=== PATIENT | female | born 1950 | race Caucasian/White ===

== ENCOUNTER → 2016-05-20 | Outpatient (CLI) | payer MEDICARE, BC ==
--- NOTE | 2016-05-21 09:14 | MRI ---
EXAM DESCRIPTION: Lumbar Spine w/o Contrast CLINICAL HISTORY: UNSPECIFIED FRACTURE OF UNSPECIFIED LUMBAR VERTEBRA COMPARISON: None Available. TECHNIQUE: MRI of the lumbar spine is performed according to our usual protocol with axial and sagittal multi sequence imaging. FINDINGS: There is good alignment of the lumbar spine. Compression deformity of L2 is present and there has been prior percutaneous vertebral augmentation. Vertebral body is filled with methacrylate cement. The distribution of the cement is excellent and there is no postprocedural complication observed. There is no residual edema. There is no new fracture at any level. L1-2: the disc is well hydrated. There is no loss of height. There is no bulging. The facets are unremarkable with no significant hypertrophy. There is no stenosis or impingement. L2-3: the disc is well hydrated. There is no loss of height. There is no bulging. The facets are unremarkable with no significant hypertrophy. There is no stenosis or impingement. L3-4: the disc is well hydrated. There is no loss of height. There is no bulging. The facets are unremarkable with no significant hypertrophy. There is no stenosis or impingement. L4-5: Minor narrowing and desiccation of the disc and broad annular bulging is present. There is a protrusion of the disc on the left measuring about 2 to 3 mm with an associated focal annular tear. There is no impingement on the exiting nerve root. There is early bilateral facet and ligament hypertrophy. However, there is no resulting canal or foraminal stenosis. L5-S1: The disc is unremarkable. There is early bilateral facet arthropathy with hypertrophy. There is no stenosis or impingement observed. IMPRESSION: 1. Disc disease L4-5 with left side disc protrusion and annular tear 2. Early facet arthropathy L4-5 and L5-S1 3. Previously treated L2 vertebral fracture Electronically signed by: Justino Alvarenga MD 05/21/2016 9:13 AM CDT
== END | disposition home or self-care (01) ==
LOC: MRI 10:54
PROVIDERS: ATTEND Family Medicine
DX: S32.009A Unspecified fracture of unspecified lumbar vertebra, initial encounter for closed fracture (principal)

== ENCOUNTER → 2016-06-29 | Outpatient (CLI) | payer MEDICARE, BC | END | disposition home or self-care (01) | LOC: YCFC.O 10:24 | PROVIDERS: ATTEND Anesthesiology Pain Medicine | DX: Z79.891 Long term (current) use of opiate analgesic (principal) ==

== ENCOUNTER 2016-07-27 05:38 | Day surgery (SDC) | payer MEDICARE, BC ==
[2016-07-27] MEDS ORDERED: SODIUM BICARBONATE VIAL 50 MEQ/50 ML VIAL ONE (10:12)
[2016-07-27] MEDS ORDERED: methylPREDNISolone ACETATE 80 MG/ML VIAL ONE (10:12)
[2016-07-27] MEDS ORDERED: SODIUM CHLORIDE 0.9% 10 ML VIAL ONE (10:12)
[2016-07-27] MEDS ORDERED: LIDOCAINE 1% MPF 5 ML VIAL ONE (10:12)
[2016-07-27 13:02] VITALS: O2SAT 95
[2016-07-27 13:36] VITALS: BP 148/71; TEMP 97.8
== END 2016-07-27 13:28 | disposition home or self-care (01) ==
LOC: AMB 05:38
PROVIDERS: ATTEND Anesthesiology Pain Medicine
DX: M51.16 Intervertebral disc disorders with radiculopathy, lumbar region (principal); F41.8 Other specified anxiety disorders; J44.9 Chronic obstructive pulmonary disease, unspecified; E78.00 Pure hypercholesterolemia, unspecified; M81.0 Age-related osteoporosis without current pathological fracture; F17.210 Nicotine dependence, cigarettes, uncomplicated; Z79.899 Other long term (current) drug therapy
CPT/HCPCS: 62323; 76000; J1030

== ENCOUNTER → 2016-09-22 | Outpatient (CLI) | payer MEDICARE, BC ==
--- NOTE | 2016-09-23 10:28 | US ---
EXAM DESCRIPTION: Thyroid CLINICAL HISTORY: 66 years, Female, NODULE COMPARISON: CT scan chest from August 13, 2010 and July 25, 2015 are reviewed. The MRI study of the cervical spine from October 08, 2014 also reviewed FINDINGS: Right lobe of thyroid 3.7 x 1.6 x 1.8 cm. Left lobe 4.1 x 2.2 x 2.0 cm. Isthmus 4 mm. Slightly heterogeneous thyroid echotexture. Lower right thyroid, there is a hypoechoic slightly irregular nodule 1.2 x 1.2 x 1.3 cm. Upper right lobe hypoechoic to isoechoic well-circumscribed nodule 1.4 x 1.0 x 0.6 cm. Left lobe lower portion well-circumscribed slightly hypoechoic nodule 2.2 x 1.7 x 1.2 cm. Similar size nodule present on the September 2014 MRI cervical spine. Mid left lobe nodule 1.1 x 1.1 x 0 point centimeters, isoechoic. IMPRESSION: Bilateral thyroid nodules identified. The nodule in the lower right lobe is irregular in appearance measuring up to about 1.3 cm. Due to irregular lobular appearing borders, biopsy should be considered. The other nodules fairly smooth in appearance. The largest of these nodules was probably present on the MRI study in 2014 Electronically signed by: Brodie Monteiro MD 09/23/2016 10:26 AM CDT
== END | disposition home or self-care (01) ==
LOC: US 09:59
PROVIDERS: ATTEND Family Medicine
DX: E04.1 Nontoxic single thyroid nodule (principal)

== ENCOUNTER → 2017-01-06 | Outpatient (CLI) | payer MEDICARE, BC | END | disposition home or self-care (01) | LOC: GMAJ 15:01 | PROVIDERS: ATTEND Family Medicine | DX: E03.9 Hypothyroidism, unspecified (principal) ==

== ENCOUNTER → 2017-04-08 | Outpatient (CLI) | payer MEDICARE, BC | LOC: GMAJ 11:31 | PROVIDERS: ATTEND Family Medicine | DX: E89.0 Postprocedural hypothyroidism (principal) ==

== ENCOUNTER → 2017-04-21 | Outpatient (CLI) | payer MEDICARE, BC ==
--- NOTE | 2017-04-21 11:19 | MRI ---
EXAM: Cervical Spine MRI without intravenous contrast HISTORY: OTHER CERVICAL DISC DISPLACEMENT AT C5-C6 LEVEL, neck pain for several months with radiation toward the left shoulder with limited range of motion COMPARISON: MRI of cervical spine from October 08, 2014 TECHNIQUE: Routine MRI protocol for cervical spine without intravenous contrast administration FINDINGS: Bony alignment at craniocervical and atlantooccipital junctions, including atlantoaxial interval, are maintained. There is maintained cervical lordosis. Vertebral heights are intact without compression injury. No spondylolysis nor spondylolisthesis is identified. Marrow signal characteristics are within normal limits without concerning edema to indicate acute/recent injury nor inflammation nor marrow infiltration. Facet joints demonstrate unremarkable alignment bilaterally. Spinous processes are intact. Cervical cord is morphologically unremarkable in appearance without focal expansile nor atrophic process, nor abnormal signal abnormality. Paraspinal soft tissue abnormality are within normal limits. At C2-3 level, disc height is maintained. Central canal and neuroforamen bilaterally are patent. At C3-4 level, disc height is maintained. Central canal and neuroforamen bilaterally are patent. At C4-5 level, disc height is maintained. Central canal and neuroforamen bilaterally are patent. At C5-6 level, disc height is maintained. Central canal and neuroforamen bilaterally are patent. At C6-7 level, disc height is stably reduced. Annular disc bulge is associated with posterior disc extrusion which probably and minimally flatten the ventral thecal margin without significant impact on the ventral cord. Stable minimal central canal stenosis. Disc extrusion toward lateral recesses may impact both exiting nerve roots. Stable greater than 50% right and less than 30% left neuroforaminal stenosis As C7-T1 level, disc height is maintained. Central canal and neuroforamen bilaterally are patent. IMPRESSION: 1. No acute or interval bony injury in cervical spine 2. No extrinsic compression nor myelomalacia nor demyelination in the cervical cord. 3. Slightly pronounced degenerative disc disease again identified in C6-7 level, with disc extrusion toward lateral recesses bilaterally, providing impact on both exiting nerve roots. 4. Slightly more pronounced narrowing of the right neuroforamen than left at C6-7 level. Electronically signed by: Preston Garnica MD 04/21/2017 11:18 AM [employer]
== END ==
LOC: MRI 10:00
PROVIDERS: ATTEND Family Medicine
DX: M50.222 Other cervical disc displacement at C5-C6 level (principal)

== ENCOUNTER → 2017-08-19 | Outpatient (CLI) | payer MEDICARE, BC | LOC: GMAJ 15:22 | PROVIDERS: ATTEND Family Medicine | DX: I10 Essential (primary) hypertension (principal) ==

== ENCOUNTER → 2017-12-29 | Outpatient (CLI) | payer MEDICARE, BC | LOC: GMAJ 14:48 | PROVIDERS: ATTEND Family Medicine | DX: E03.9 Hypothyroidism, unspecified (principal) ==

== ENCOUNTER 2018-01-07 17:08 | Emergency (ER) | payer MEDICARE, BC ==
[2018-01-07 17:31] VITALS: BP 105/52; TEMP 99.4
[2018-01-07] MEDS ORDERED: AZITHROMYCIN 250 MG TAB PO ONE (17:42)
[2018-01-07] MEDS ORDERED: predniSONE 20 MG TAB PO ONE (17:42)
--- NOTE | 2018-01-07 17:45 | ED.PDOC ---
History of Present Illness - General Chief Complaint: Respiratory Problem Stated Complaint: cough, epistaxis Time Seen by Provider: 01/07/18 17:35 Source: patient Exam Limitations: no limitations - History of Present Illness Initial Comments: the patient is a 67-year-old female presenting to emergency room secondary to cough that has been persistent for the last 5 days. She had her flu vaccine 1 week ago. She started having a mild cough 2 days after that. No fevers. No shortness of breath that is new. She does have long-standing COPD and was placed on oxygen within the last month. She did have an episode of right-sided epistaxis last night that is controlled. She is alert and oriented and in no distress. She normally only wears her oxygen at night. She is borderline low here today. She does have a mild persistent cough. She has posterior right chest wall soreness from the cough. She is pleasant and cooperative. Lungs signs are actually reassuring throughout. She does have mild scattered rhonchi. Good air movement on both sides. Timing/Duration: 1 week Severity: mild Improving Factors: nothing Worsening Factors: nothing Associated Symptoms: cough Allergies/Adverse Reactions: Allergies NO KNOWN ALLERGY Allergy (Verified 07/25/15 17:27) Home Medications: Ambulatory Orders Citalopram Hydrobromide [Celexa] 10 mg PO DAILY 07/25/15 Enalapril Maleate 10 mg PO DAILY 07/25/15 Losartan Potassium 25 mg PO DAILY 07/25/15 Metoprolol Tartrate 100 mg PO DAILY 07/25/15 Diclofenac [Zorvolex] 35 mg PO DAILY 09/18/15 Hydrochlorothiazide 25 mg PO DAILY 09/18/15 Potassium Chloride [K-Tab] 10 meq PO DAILY 09/18/15 amLODIPine BESYLATE [Norvasc] 5 mg PO DAILY 09/18/15 Azithromycin 500 mg PO DAILY #5 tab 01/07/18 predniSONE [Prednisone] 20 mg PO DAILY #5 tab 01/07/18 Review of Systems - Review of Systems Constitutional: States: no symptoms reported EENTM: States: no symptoms reported Respiratory: States: cough Cardiology: States: chest pain - posterior right chest wall. No crepitus. No palpable deformity. No bruising. Gastrointestinal/Abdominal: States: no symptoms reported Genitourinary: States: no symptoms reported Musculoskeletal: States: no symptoms reported, see HPI Skin: States: no symptoms reported Neurological: States: no symptoms reported Endocrine: States: no symptoms reported All other Systems: No Change from Baseline Past Medical History (General) - Patient Medical History Hx Stroke: No Hx of COPD: Yes Hx Congestive Heart Failure: No Hx Hypertension: Yes Hx Diabetes: No Hx MRSA: No - Vaccination History Hx Influenza Vaccination: Yes - 12/31/17 Hx Pneumococcal Vaccination: Yes - 2014 - Social History Hx Tobacco Use: Yes Hx Depression: Yes Family Medical History - Family History Mother Living Status: Hx Cardiac Disease: Yes Hx Family;Other: Rheumatic fever Physical Exam - Physical Exam General Appearance: Alert, Comfortable, No apparent distress Eye Exam: bilateral normal Ears, Nose, Throat: hearing grossly normal, normal pharynx, other - abrasion to the right nasal septum where she had the epistaxis last night is noted. Neck: full range of motion, supple Respiratory: no respiratory distress, no accessory muscle use, rhonchi - mild scattered Cardiovascular/Chest: normal peripheral pulses, regular rate, rhythm, no edema Peripheral Pulses: radial,right: 2+, radial,left: 2+ Gastrointestinal/Abdominal: non tender, soft Rectal Exam: deferred Back Exam: other - right lower posterior chest wall discomfort to palpation Extremity: normal range of motion, non-tender, normal inspection, no pedal edema , normal capillary refill Neurologic: [employer] II-XII nml as tested, alert, normal mood/affect, oriented x 3 Skin Exam: normal color Comments: Vital Signs - 24 hr 01/07/18 17:18 Temperature 99.4 F Pulse Rate [ 83 pulse ox] Respiratory 18 Rate Blood Pressure 105/52 [left brachial] O2 Sat by Pulse 89 L Oximetry Progress - Progress Progress: 01/07/18 17:46 the patient's 67-year-old female presenting to the emergency room secondary to a mild COPD exacerbation that was likely started by a viral upper respiratory tract infection 5-6 days ago. she now has a persistent cough. She does have borderline hypoxia and does need to wear her oxygen 24 /7 until she is over this flare. Lung sounds are reassuring. She does appear to have a mild bronchitis. She is going to be covered for bacterial etiologies with azithromycin for 5 days and with oral prednisone for 5 days. She needs to follow back up with his primary care doctor early next week. ER warnings were given for any worsening. No current distress. For the epistaxis she can apply Cetaphil to her nares. I would also recommend that she talk to her provider about the modified oxygen. This may prevent further bleeds. 01/07/18 17:48 Departure - Departure Clinical Impression: Epistaxis Acute bronchitis Qualifiers: Bronchitis organism: unspecified organism Qualified Code(s): J20.9 - Acute bronchitis, unspecified Disposition: Discharge to Home or Self Care Condition: Fair Departure Forms: ED Discharge - Pt. Copy, Patient Portal Self Enrollment Instructions: Nosebleeds (DC) Diet: regular diet Activity: increase activity as tolerated Referrals: Joey Soares MD [Primary Care Provider] - 1-2 Weeks Prescriptions: Azithromycin 500 mg PO DAILY #5 tab predniSONE [Prednisone] 20 mg PO DAILY #5 tab Home Medications: Ambulatory Orders Citalopram Hydrobromide [Celexa] 10 mg PO DAILY 07/25/15 Enalapril Maleate 10 mg PO DAILY 07/25/15 Losartan Potassium 25 mg PO DAILY 07/25/15 Metoprolol Tartrate 100 mg PO DAILY 07/25/15 Diclofenac [Zorvolex] 35 mg PO DAILY 09/18/15 Hydrochlorothiazide 25 mg PO DAILY 09/18/15 Potassium Chloride [K-Tab] 10 meq PO DAILY 09/18/15 amLODIPine BESYLATE [Norvasc] 5 mg PO DAILY 09/18/15 Azithromycin 500 mg PO DAILY #5 tab 01/07/18 predniSONE [Prednisone] 20 mg PO DAILY #5 tab 01/07/18 Additional Instructions: the patient's 67-year-old female presenting to the emergency room secondary to a mild COPD exacerbation that was likely started by a viral upper respiratory tract infection 5-6 days ago. she now has a persistent cough. She does have borderline hypoxia and does need to wear her oxygen 24 /7 until she is over this flare. Lung sounds are reassuring. She does appear to have a mild bronchitis. She is going to be covered for bacterial etiologies with azithromycin for 5 days and with oral prednisone for 5 days. She needs to follow back up with his primary care doctor early next week. ER warnings were given for any worsening. No current distress. for the nosebleeds, she can use Cetaphil to the nares twice daily. I would also recommend that she obtain a humidifying device for her oxygen at night.
[2018-01-07] MEDS ORDERED: diphenhydrAMINE HCL 25 MG CAP PO ONE (18:14)
[2018-01-07 18:26] VITALS: O2SAT 94
== END 2018-01-07 18:15 | disposition home or self-care (01) ==
LOC: ER 17:08
DX: J44.1 Chronic obstructive pulmonary disease with (acute) exacerbation (principal); J20.9 Acute bronchitis, unspecified; J44.0 Chronic obstructive pulmonary disease with (acute) lower respiratory infection; R04.0 Epistaxis; I10 Essential (primary) hypertension; F32.9 Major depressive disorder, single episode, unspecified; Z87.891 Personal history of nicotine dependence; Z79.899 Other long term (current) drug therapy; Z99.81 Dependence on supplemental oxygen
CPT/HCPCS: J7512; Q0144; Q0163

== ENCOUNTER → 2018-01-21 | Outpatient (CLI) | payer MEDICARE, BC ==
--- NOTE | 2018-01-21 14:27 | CT ---
Procedure: CT LUNG SCREENING Exam Date: 01/21/2018. Ordering Provider: Florentin Shipman Clinical Indication: CIGARETTE SMOKING This patient meets eligibility criteria for low-dose CT lung cancer screening. Comparison: CT of the chest 07/25/2015. Technique: Using a multislice scanner, sequential helical axial imaging was obtained in the thorax, 2.5 mm thickness, 2.5 mm separation, from the level of the thoracic inlet through the lung bases without IV contrast. A low dose protocol was utilized: CTDI: 1.76 mGy. 120. kVp. 45 mA. 2D sagittal and coronal reconstructed images, 6.0 mm thickness, were obtained. This exam was performed according to our departmental dose optimization program which includes use of automated exposure control, adjustment of the mA and/or kV according to patient size and/or use of iterative reconstruction technique. Nodule measurements under 10 mm are given as mean value of 3 axes diameters. FINDINGS: Lungs and large airways: Bilateral parenchymal blebs in a centrilobular distribution. More numerous in the upper lobes. Triangular-shaped density in the inferior lingula abutting the pleura and extending to the medial pleura abutting the pericardium stable since the prior study. Vague densities in the bilateral posterior recesses of the lower lobes slightly larger on the right and stable. Stable calcified 2 mm nodule abutting the medial paraspinal pleura in the right lower lobe. 3 mm groundglass subpleural nodule laterally superior segment right lower lobe on lung axial image 50. Stable since the prior study. No abnormal nodules, no pulmonary masses or infiltrates. Pleura: Bilateral focal areas of pleural thickening no effusion or pneumothorax bilaterally. Mediastinum and zeny: evaluation limited by low dose technique and lack of IV contrast. Small mediastinal lymph nodes stable. No large soft tissue masses. Heart and great vessels: Coronary artery calcifications. Atherosclerotic calcification of the aortic arch and descending thoracic aorta which is minimally ectatic. Proximal brachiocephalic atherosclerotic calcifications. Stable since the prior study.. Chest wall, lower neck, axillae: Evaluation also limited by same factors as described above. Axillary and chest wall lymph nodes are small and stable. Included thyroid gland small. Upper abdomen: No free fluid or free air in the peritoneum. Abdominal aortic calcifications. Also seen on prior study. Osseous structures: Evaluation limited by low dose MIP technique. Spondylosis at multiple levels in the upper and midthoracic spine. Partially compressed L2 vertebral body with augmentation cement. Cement in the L2-3 disc space. Arthrosis in the bilateral sternoclavicular joints. Hypertrophic changes in the bilateral glenohumeral joints. No lytic or blastic lesions. IMPRESSION: Mild emphysematous changes predominantly in the upper lobes bilaterally. Also seen on the prior study July 2015. No abnormal nodules masses or infiltrates. No abnormal findings in the pleura. [facility] Best Practice guidelines for lung screening following the ACR lung RADS recommendations.. Please see below for Lung RADS category and FOLLOW-UP.*Most recent digital bilateral mammographic screening examination August 2015. Consider repeat screening examination, if not done in the past year. *Lung RADS category Category 1 - No nodule or definitely benign nodules (probability of malignancy less than 1%). Follow-up: Continue annual screening with Low Dose Chest CT in 12 months. Electronically signed by: Adria Griffin MD 01/21/2018 2:26 PM OTOLARYNGOLOGY NURSE
== END ==
LOC: CT 10:00
PROVIDERS: ATTEND Family Medicine
DX: Z87.891 Personal history of nicotine dependence (principal)

== ENCOUNTER → 2018-04-28 | Outpatient (CLI) | payer MEDICARE, BC | LOC: LAB.O 11:57 | PROVIDERS: ATTEND Family Medicine | DX: E03.9 Hypothyroidism, unspecified (principal); D75.1 Secondary polycythemia ==

== ENCOUNTER → 2018-08-03 | Outpatient (CLI) | payer MEDICARE, BC | LOC: GMAJ 10:29 | PROVIDERS: ATTEND Family Medicine | DX: R00.2 Palpitations (principal); R29.898 Other symptoms and signs involving the musculoskeletal system ==

== ENCOUNTER → 2018-08-17 | Outpatient (CLI) | payer MEDICARE, BC ==
--- NOTE | 2018-08-17 12:12 | NM ---
EXAM DESCRIPTION: Hepatobiliary w/CCK: Nuclear Medicine. CLINICAL HISTORY: GENERALIZED ABDOMINAL PAIN COMPARISON: Ultrasound abdomen January 2016. TECHNIQUE: Patient was given 6.8 mCi of technetium 99 M mebrofenin (Choletec) radiopharmaceutical IV. Anterior gamma camera images were obtained of the right upper quadrant at 5 minute intervals for one hour . The patient was then given 1.0 mcg CCK (Kinevac). .Gallbladder ejection fraction was evaluated by measuring diminishing radioactivity in the gallbladder, over 30 min interval. FINDINGS: Prompt visualization of the hepatic parenchyma anterior administration of radiopharmaceutical with no focal regions of increased or decreased radiotracer activity. Timely visualization of intrahepatic and extrahepatic ducts, gallbladder, and small intestine. After CCK infusion was begun, there were no symptoms reproduced. Maximum decrease in activity in the gallbladder was seen 20 minutes after administration. Decrease in activity was approximately 79%. Residual increase in activity over the last 10 minutes of the infusion. IMPRESSION: 1. No intrahepatic or extrahepatic biliary partial or complete obstruction. Timely visualization of gallbladder and small bowel. 2. Gallbladder ejection fraction was 79% at 20 minutes, and 61% at 30 minutes. This is within the normal range. Electronically signed by: Adria Griffin MD 08/17/2018 12:09 PM CDT
== END ==
LOC: NM 09:00
PROVIDERS: ATTEND Family Medicine
DX: R10.84 Generalized abdominal pain (principal)
CPT/HCPCS: 78227; A9537

== ENCOUNTER 2018-08-23 10:00 | Inpatient (IN) | payer MEDICARE, BC ==
--- NOTE | 2018-08-23 11:36 | CT ---
EXAM DESCRIPTION: Abdomen/Pelvis w/Contrast CLINICAL HISTORY: GENERALIZED ABDOMINAL PAIN COMPARISON: None. TECHNIQUE: Postcontrast CT images of the abdomen and pelvis are obtained using standard imaging protocol. This exam was performed according to our departmental dose-optimization program, which includes automated exposure control, adjustment of the mA and/or kV according to patient size and/or use of iterative reconstruction technique . FINDINGS: Visualized lung bases show no acute findings. The liver, spleen, pancreas, adrenal glands, and gallbladder are unremarkable. Moderate vascular calcifications are seen. Cortical cysts of the mid to upper pole left kidney measuring maximum 1.1 cm. No nephrolithiasis or ureteral obstruction. The uterus and left ovary are unremarkable. Right ovary is not seen. Urinary bladder is contracted and not well evaluated. Postsurgical changes from right partial hemicolectomy are seen. Stomach is poorly distended and unremarkable. No small bowel obstruction. Moderate scattered diverticuli of the colon most prominently in the descending to sigmoid region are seen. Focal bowel wall thickening with surrounding fat stranding in the left lower quadrant associated with culprit diverticulum on image 58 of series 2. No free intraperitoneal air or abnormal drainable fluid collections are seen. Osseous structures show no aggressive bony lesions. L2 compression fracture status post vertebral augmentation is seen. No pathologic lymphadenopathy IMPRESSION: Acute diverticulitis of the left lower quadrant involving the descending to sigmoid colon junction without complicating features. Postsurgical changes from partial right hemicolectomy. Electronically signed by: Dale Clark MD 08/23/2018 11:34 AM CDT
--- NOTE | 2018-08-23 14:57 | HP ---
SUPERVISING PHYSICIAN: Rob Escobar M.D. CHIEF COMPLAINT: Left lower quadrant abdominal pain. HISTORY OF PRESENT ILLNESS: This is a 67 year-old female who was a direct admit from Dr. Soares' office. She states that on Wednesday she started to develop some left lower quadrant abdominal pain which worsened a little bit on Wednesday with a sharp pain in the left lower quadrant. She did not admit to any fever or chills. She does admit to some nausea but no vomiting. She did have a bowel movement yesterday on Wednesday but not today, but she did go to see Dr. Soares yesterday. When she saw him, he did some lab work and showed a white count of 15,000. At that time he wanted to admit her to the hospital for acute diverticulitis, however she did not want to be admitted so he put her on oral antibiotics. Today, she felt like the pain was a little bit worse and she was more distended in her abdomen. Whenever she went back to see him he repeated lab work that showed a white count of 12,000. He also did a CT scan of the abdomen which showed diverticulitis in the left lower quadrant in the descending to the sigmoid colon junction. For that reason he again offered admission and this time she accepted. Therefore she was admitted to the hospital as a direct admit from Dr. Soares' office. At time of examination the patient is alert and in mild distress secondary to pain, but otherwise alert and oriented. PAST MEDICAL HISTORY: 1. Hypertension. 2. Chronic obstructive pulmonary disease. 3. H. pylori with peptic ulcer disease. 4. Diverticulitis in the past. 5. Osteoarthritis. 6. Osteoporosis. 7. Hypothyroidism postoperative. 8. Erythrocytosis for which he needed to be phlebotomized in the past, however this has happened recently. 9. Tremor. PAST SURGICAL HISTORY: 1. Previous incisional hernia repair back in 1994. She stated at that time she also had diverticulitis and had an appendectomy. 2. Tubal ligation. 3. Right oophorectomy. 4. Thyroidectomy. 5. Most recent colonoscopy was 3 years ago and states that that was normal. 6. Bilateral blepharectomy. CURRENT MEDICATIONS: Please see the medication reconciliation record in the chart. ALLERGIES: NO KNOWN DRUG ALLERGIES. FAMILY HISTORY: Father who had Alzheimer's disease. Mother is from lung cancer. SOCIAL HISTORY: The patient smokes 1 pack per day for the last 56 years. She drinks 4 beers on a nightly basis. No illicit drugs. REVIEW OF SYSTEMS: CONSTITUTIONAL: No fever or chills. No recent weight loss or weight gain. HEENT: No headaches, vision changes, ear pain, nasal congestion or throat pain. RESPIRATORY: No cough, hemoptysis or pleuritic chest pain. CARDIOVASCULAR: No chest pain, palpitations or peripheral edema. GASTROINTESTINAL: Positive for some nausea. No vomiting. No diarrhea. No constipation. Positive for left lower quadrant abdominal pain. GENITOURINARY: No dysuria, frequency or flank pain. HEMATOLOGIC: Positive for easy bruising but no transfusion reaction and no bleeding disorders. ENDOCRINE: No polydipsia, polyuria or polyphagia. No heat or cold intolerance. NEUROLOGIC: No syncope, paresthesias or seizures. SKIN: No rashes, lesions or wounds. PHYSICAL EXAMINATION: VITAL SIGNS: Blood pressure 100/56, heart rate 66, respiratory rate 16, temperature 98.6, oxygen saturation 95%. GENERAL: Ms. Keita is a 67 year-old female who is in some mild distress secondary to pain at this time. HEENT: Head: Normocephalic and atraumatic. Eyes: Pupils are equal and reactive. Nose: No drainage. Throat: Moist mucosa. NECK: Supple. Midline trachea. No jugular venous distention. CHEST: Symmetrical with equal rise and fall of the chest with inspiration and expiration. Lung sounds are clear to auscultation bilaterally. CARDIOVASCULAR: Regular rate and rhythm. Normal S1 and S2. ABDOMEN: Soft. Positive bowel sounds. Positive for tenderness to palpation in the left lower quadrant. She does have a little bit of rebound tenderness. GENITOURINARY: Deferred. EXTREMITIES: Lower extremities with no edema, 2+ pulses. Capillary refill less than 2 seconds. LABORATORY: Most recent labs show white count 12,000, hemoglobin 15.3, hematocrit 45.1, platelet count 291, and that is today's labs. On yesterday's chemistry she had a sodium of 135, potassium 4.3, chloride 98, CO2 of 32, BUN 9, creatinine 0.5, glucose 108, calcium 9.4. LFTs were normal. CT scan is as described in the History of Present Illness. ASSESSMENT: 1. Acute diverticulitis left lower quadrant. 2. Chronic obstructive pulmonary disease with continuous nicotine dependency with no acute exacerbation. 3. Hypertension. 4. Hypothyroidism. 5. Erythrocytosis history with no acute apparent complication. PLAN: At this time the patient will be admitted to the Medical/Surgical Unit for acute diverticulitis. Appropriate antibiotics with Levaquin and Flagyl will be ordered. I am also going to place the patient NPO and place on continuous IV fluids. Will hold off on any Lovenox for now in the event that she might need surgical intervention. I have consulted Dr. Smith, the surgeon, for evaluation as well. IV PPI has been ordered for GI ulcer prophylaxis. I will recheck her labs in the morning as well to ensure we are going in the right direction. I have ordered a nicotine patch due to her continuous nicotine dependency as well. [facility][id number] [facility]
[2018-08-23] MEDS ORDERED: SODIUM CHLORIDE 0.9% (FLUSH) 10 ML SYG IV PRN (16:11)
[2018-08-23] MEDS ORDERED: MORPHINE SULFATE INJ 10 MG/ML VIAL IV PRN (16:11)
[2018-08-23] MEDS ORDERED: IV SET AND CAP CHANGE INJ INJ SCH (16:30)
[2018-08-23] MEDS ORDERED: metroNIDAZOLE IV PREMIX 500MG 100 ML IVPB ONE ×2 (16:45→19:21)
[2018-08-23] MEDS: LACTATED RINGERS 1,000 ML IVS PRN (17:02)
[2018-08-23] MEDS: metroNIDAZOLE IV PREMIX 500MG 500 MG in PREMIX BAG 1 BAG IVPB SCH ×2 (17:06→23:45)
[2018-08-23] MEDS: levoFLOXacin 750MG IV 750 MG in PREMIX BAG 1 BAG IVPB SCH (18:38)
[2018-08-23] MEDS: NICOTINE PATCH 21 MG TD SCH (18:43)
[2018-08-23] MEDS ORDERED: PANTOPRAZOLE SODIUM IV 40 MG VIAL ONE (19:21)
[2018-08-24] MEDS ORDERED: IPRATROPIUM/ALBUTEROL 3 ML VIAL NEB PRN (05:38)
[2018-08-24] MEDS: LACTATED RINGERS 1,000 ML IVS PRN (06:04)
[2018-08-24] MEDS ORDERED: PANTOPRAZOLE SODIUM IV 40 MG VIAL IV SCH (06:30)
[2018-08-24] MEDS ORDERED: metroNIDAZOLE IV PREMIX 500MG 0 ML IVPB ONE (07:18)
[2018-08-24] MEDS: metroNIDAZOLE IV PREMIX 500MG 500 MG in PREMIX BAG 1 BAG IVPB SCH ×2 (07:43→16:19)
[2018-08-24] MEDS: NICOTINE PATCH 21 MG TD SCH (08:34)
[2018-08-24] MEDS ORDERED: LEVOTHYROXINE SODIUM 100 MCG PO SCH (10:45)
[2018-08-24] MEDS ORDERED: CITALOPRAM HYDROBROMIDE 10 MG PO SCH (10:45)
[2018-08-24] MEDS ORDERED: NON-FORMULARY MEDICATION 1 EA MIS (Metoprolol Tartrate [Metoprolol Tartrate] 100 MG) PO SCH (10:45)
[2018-08-24] MEDS ORDERED: NON-FORMULARY MEDICATION 1 EA MIS (Enalapril Maleate [Enalapril Maleate] 10 MG) PO SCH (10:45)
[2018-08-24] MEDS ORDERED: DULOXETINE HCL 30 MG PO SCH (10:45)
[2018-08-24] MEDS ORDERED: CITALOPRAM HBR 20 MG TAB ONE (11:10)
[2018-08-24] MEDS ORDERED: LEVOTHYROXINE SODIUM 0.1 MG TAB ONE (11:10)
[2018-08-24] MEDS ORDERED: DULoxetine HCL 30 MG CAP PO ONE (11:10)
[2018-08-24] MEDS: hydroCHLOROthiazide 25 MG TAB PO SCH (11:17)
[2018-08-24] MEDS: LOSARTAN POTASSIUM 25 MG TAB PO SCH (11:17)
[2018-08-24] MEDS: amLODIPine BESYLATE 5 MG TAB PO SCH (11:18)
[2018-08-24] MEDS: CITALOPRAM HBR 20 MG TAB PO SCH (11:27)
[2018-08-24] MEDS: DULoxetine HCL 30 MG CAP PO SCH (11:28)
[2018-08-24] MEDS: LEVOTHYROXINE SODIUM 0.1 MG TAB PO SCH (11:28)
[2018-08-24] MEDS: METOPROLOL TARTRATE 50 MG TAB PO SCH (11:28)
[2018-08-24] MEDS: ENALAPRIL MALEATE 5 MG TAB PO SCH (11:28)
--- NOTE | 2018-08-24 13:18 | PN ---
SUPERVISING PHYSICIAN: Rob Escobar MD DATE: 08/24/18 SUBJECTIVE: The patient is sitting up in bed. Family is at the bedside. She has no complaints of nausea or vomiting. Her abdominal pain is much improved. She has tolerated her clear liquids without any issues. We discussed a low residual diet. If she continues to improve clinically, she may be discharged tomorrow or the next day. OBJECTIVE: VITAL SIGNS: Temperature 97.4. Heart rate 63. Blood pressure 90/64. Respiratory rate 16. O2 saturation 95% on room air. RESPIRATORY: Essentially clear to auscultation bilaterally. CARDIAC: Regular rate and rhythm. GASTROINTESTINAL: Abdomen is soft, nondistended. She is very mildly tender in the left lower quadrant. No rebound tenderness, no guarding. Bowel sounds are positive. NEUROLOGIC: Awake, alert and oriented times three. LABORATORY: Her CBC is basically unremarkable. Chemistry shows chloride 100, calcium 8.3, serum total protein 5.9, albumin 3. Otherwise, her metabolic panel is unremarkable. Triglycerides 77, LDL 112.3, HDL 35. All other labs and films have been reviewed via the EMR. ASSESSMENT: 1. Acute diverticulitis in the left lower quadrant. 2. Chronic obstructive pulmonary disease with continuous nicotine dependency with no acute exacerbation. 3. Hypertension. 4. Hypothyroidism. 5. Erythrocytosis history with no apparent complication. PLAN: We will continue present supportive care. She is tolerating a clear liquid diet. I will advance her to a low residual for tomorrow morning. If she tolerates that without problems and she has improved clinically with no pain, she can go home tomorrow. I have had the nurses copy off a low residual diet and give that to her. I will hold on any labs for now. We will continue to monitor the patient closely and follow as needed. #[id number] [facility]
[2018-08-24] MEDS ORDERED: metroNIDAZOLE IV PREMIX 500MG 100 ML IVPB ONE ×2 (16:09→19:54)
[2018-08-24] MEDS: levoFLOXacin 750MG IV 750 MG in PREMIX BAG 1 BAG IVPB SCH (17:41)
[2018-08-24] MEDS: metroNIDAZOLE 500 MG TAB PO SCH (22:47)
[2018-08-25] MEDS: LEVOTHYROXINE SODIUM 0.1 MG TAB PO SCH (06:21)
[2018-08-25] MEDS: metroNIDAZOLE 500 MG TAB PO SCH (06:21)
[2018-08-25] MEDS ORDERED: PANTOPRAZOLE SODIUM TAB 40 MG PO SCH (06:30)
[2018-08-25] MEDS ORDERED: POTASSIUM CHLORIDE 10 MEQ TAB PO SCH (09:00)
[2018-08-25] MEDS: ENALAPRIL MALEATE 5 MG TAB PO SCH (09:49)
[2018-08-25] MEDS: hydroCHLOROthiazide 25 MG TAB PO SCH (09:50)
[2018-08-25] MEDS: DULoxetine HCL 30 MG CAP PO SCH (09:50)
[2018-08-25] MEDS: NICOTINE PATCH 21 MG TD SCH (09:51)
[2018-08-25] MEDS: METOPROLOL TARTRATE 50 MG TAB PO SCH (09:51)
[2018-08-25] MEDS: CITALOPRAM HBR 20 MG TAB PO SCH (09:51)
[2018-08-25] MEDS: LOSARTAN POTASSIUM 25 MG TAB PO SCH (09:51)
[2018-08-25] MEDS: amLODIPine BESYLATE 5 MG TAB PO SCH (09:51)
[2018-08-25 10:15] VITALS: BP 105/77; TEMP 97.7; O2SAT 96
--- NOTE | 2018-08-25 19:01 | DS ---
SUPERVISING PHYSICIAN: Rob Escobar M.D. DISCHARGE DIAGNOSIS: 1. Acute diverticulitis in the left lower quadrant failed outpatient therapy. 2. Chronic obstructive pulmonary disease with continuous nicotine dependency with no acute exacerbation. 3. Hypertension. 4. Hypothyroidism. 5. Erythrocytosis history with no apparent complication. HISTORY OF PRESENT ILLNESS: This is a 67 year-old female patient who was a direct admit from Dr. Soares' office. On Wednesday, she developed some mild left lower quadrant abdominal pain which worsened a little bit on Wednesday. She ended up having a sharp pain in the left lower quadrant. There was no fever or chills. There was some nausea but no vomiting. She went to see Dr. Soares. He did some lab work which showed a white count of 15,000. At that time he wanted to admit her to the hospital for acute diverticulitis although she did not want to be admitted so she put her on oral antibiotics of Cipro and Flagyl. She was worse the next day and her abdomen was more distended. She went to see Dr. Soares and he repeated lab work which showed a white count of 12,000. He had a CT scan of the abdomen which showed diverticulitis in the left lower quadrant in the descending to the sigmoid colon junction. For that reason he again offered her admission and this time she felt she should be admitted. She was a direct admit to the hospital from Dr. Soares' office. At the time of admission she was awake, alert and oriented times three and she was in stable condition. HOSPITAL COURSE: She was started on Levaquin and Flagyl IV. She was also given bowel rest and was NPO with continuous IV fluid. Dr. Smith, dust box worker, was consulted as well as the general surgeon here at the hospital. She had a PPI for ulcer prophylaxis, DVT prophylaxis was held in case she needed surgical intervention. The following day her symptoms improved dramatically. Her diet was advanced to a clear liquid. Her vital signs remained stable. This morning her diet was advanced to a low residue diet and she tolerated her diet without any problems. Her fluids were discontinued yesterday. She will be discharged home today in stable condition. LABORATORY: Followup WBCs were 7.7 with hemoglobin and hematocrit of 14.5 and 44.2 respectively. Electrolytes were basically within normal limits with her chloride being slightly low at 100. Calcium was slightly low at 8.3. Triglycerides were 77. LDL was 112.3, HDL was 35. RADIOLOGY: Per the History of Present Illness. DISCHARGE PLAN: The patient will be discharged home in stable condition. She is to call Dr. Soares' office on Wednesday to get a followup appointment with him within the next 1 to 2 weeks. She is to continue on a low residue diet She is to continue her previous home medications, including her Cipro and Flagyl. She is to return to the hospital or followup with Dr. Soares for any problems or complications. DISCHARGE MEDICATIONS: 1. Metoprolol. 2. Losartan. 3. Enalapril. 4. Citalopram. 5. Hydrochlorothiazide. 6. Potassium chloride. 7. Zorvolex. 8. Amlodipine. 9. Metronidazole. 10. Levothyroxine. 11. Ciprofloxacin. 12. Spiriva Handihaler. 13. Brovana nebs. 14. Albuterol nebs. 15. Levaquin. #[id number] and [id number] [facility]
== END 2018-08-25 10:15 | disposition home or self-care (01) | DRG 392 ==
LOC: CT 10:00 → MS 14:54
PROVIDERS: ADMIT Nurse Practitioner; ATTEND Nurse Practitioner Acute Care
PROC: BW211ZZ Computerized Tomography (CT Scan) of Abdomen and Pelvis using Low Osmolar Contrast (ICD-10-PCS; principal; 2018-08-23)
DX: K57.32 Diverticulitis of large intestine without perforation or abscess without bleeding (principal); J44.9 Chronic obstructive pulmonary disease, unspecified; I10 Essential (primary) hypertension; E89.0 Postprocedural hypothyroidism; M19.90 Unspecified osteoarthritis, unspecified site; M81.0 Age-related osteoporosis without current pathological fracture; D75.1 Secondary polycythemia; F17.210 Nicotine dependence, cigarettes, uncomplicated; Z87.11 Personal history of peptic ulcer disease; Z79.899 Other long term (current) drug therapy

== ENCOUNTER → 2018-12-05 | Outpatient (CLI) | payer MEDICARE, BC | LOC: GMAJ 16:37 | PROVIDERS: ATTEND Family Medicine | DX: R41.82 Altered mental status, unspecified (principal); E53.8 Deficiency of other specified B group vitamins; M25.50 Pain in unspecified joint; D03.9 Melanoma in situ, unspecified ==

== ENCOUNTER → 2018-12-12 | Outpatient (CLI) | payer MEDICARE, BC ==
--- NOTE | 2018-12-12 16:00 | MRI ---
EXAM DESCRIPTION: Brain w/o Contrast: MRI. CLINICAL HISTORY: AGE RELATED COGNITIVE DECLINE COMPARISON: None. TECHNIQUE: Multiplanar, high-field MRI unit, multiple diffusion sequences, multiple conventional sequences without contrast. FINDINGS: Multiple small foci of hyperintense FLAIR and T2-weighted signal in the periventricular white matter and coronado/sub-cortical white matter junctions of the cerebral hemispheres. Also involving the bilateral centrum semiovale. Predominantly frontal and parietal lobes with a subcortical lesion right occipital lobe. No diffusion restriction . No hemorrhage, no cerebral edema, no mass-effect. Normal signal in the bilateral basal ganglia. Normal signal in the brainstem and cerebellar hemispheres. No diffusion restriction No hemorrhage, no parenchymal edema, no mass-effect. Concordance of the diffusion and non-diffusion sequences with no diffusion restriction. Cortical sulci, ventricles, and other CSF spaces, and the subdural spaces are normally configured for patients age. No effacement or displacement. No midline shift. No extra-axial hemorrhage. Normal flow signal void in the major vessels of the [place], and the venous sinuses. IACs are symmetric bilaterally. No abnormal signal in the bilateral mastoid air cells. No mass effect in the bilateral cerebellopontine angles. Pituitary gland occupies most of the sella. Base of the cerebellar tonsils is above the foramen magnum. Minimal mucosal periosteal thickening in the ethmoid air cells. Artifact caused by dental device in the right anterior maxillary region. The bony calvarium is intact. IMPRESSION: 1. Abnormal white matter disease in the centrum semiovale and polanco radiata as well as subcortical white matter consistent with aging and/or cerebral microvascular disease. No hemorrhage, no mass effect, no diffusion restriction. 2. Normal MRI diffusion study without IV contrast with no evidence of acute or subacute significant ischemia or infarction. 3. Minimal chronic paranasal sinusitis. Electronically signed by: Adria Griffin MD 12/12/2018 3:58 PM CDT
== END ==
LOC: MRI 09:12
PROVIDERS: ATTEND Family Medicine
DX: R41.81 Age-related cognitive decline (principal); R90.82 White matter disease, unspecified; J32.9 Chronic sinusitis, unspecified

== ENCOUNTER → 2018-12-13 | Outpatient (CLI) | payer MEDICARE, BC ==
--- NOTE | 2018-12-14 17:14 | MAM ---
EXAM DESCRIPTION: 3D Screening BILATERAL : Digital Mammography. CLINICAL HISTORY: 68 years Female SCREEN . No complaints. No personal or family history of breast cancer. Menarche age 9. Childbirth. Postmenopausal 20+ years. No HRT. Lifetime risk of developing breast cancer (Tyrer-Cuzick model)(%): 4.0. COMPARISON: 2-D digital screening bilateral mammography 30 November 2012. No prior reports available. TECHNIQUE: Bilateral CC and MLO projection full-field images, digital tomosynthesis mammographic technique. Bilateral digital 2-D full-field MLO images. CAD not available for tomosynthesis or 2-D images. FINDINGS: The breast parenchymal density pattern is: Scattered areas of fibroglandular density. No skin thickening or nipple retraction. Anterior microcalcifications predominantly right breast.. No new focal, stellate mass or density, focal asymmetry , and no suspicious microcalcifications bilaterally. Stable mammograms compared to prior study. Taking into account, differences in mammographic technique. IMPRESSION: Benign exam. BIRAD CATEGORY: 2 BENIGN FINDINGS. RECOMMENDATIONS: FOLLOW UP: Routine digital bilateral mammographic screening, one year interval from November 2018. Written communication explaining the IMPRESSION and follow-up, will be mailed to the patient and referring health care provider. According to the [employer], yearly mammograms are recommended starting at age 40 and continuing as long as a woman is in good health. Any breast change noted on a breast self-exam should be reported promptly to the patient's healthcare provider. Breast MRI is recommended for women with an approximately 20-25% or greater lifetime risk of breast cancer, including women with a strong family history of breast or ovarian cancer and women who have been treated for Hodgkin's disease. A negative mammographic report should not delay tissue diagnosis in patients with significant clinical history or physical findings. Extremely dense breast tissue limits the sensitivity of digital mammography. Electronically signed by: Adria Griffin MD 12/14/2018 5:12 PM CDT
== END ==
LOC: MAMMO 11:25
PROVIDERS: ATTEND Family Medicine
DX: Z12.31 Encounter for screening mammogram for malignant neoplasm of breast (principal)

== ENCOUNTER → 2019-03-02 | Outpatient (CLI) | payer MEDICARE, BC | LOC: GMAJ 14:05 | PROVIDERS: ATTEND Family Medicine | DX: M25.50 Pain in unspecified joint (principal); R60.1 Generalized edema ==

== ENCOUNTER → 2019-03-10 | Outpatient (CLI) | payer MEDICARE, BC ==
--- NOTE | 2019-03-10 14:35 | CT ---
EXAM DESCRIPTION: Abdomen/Pelvis w/Contrast CLINICAL HISTORY: 68 years Female, GEN ABD PN COMPARISON: CT abdomen pelvis dated 08/23/2018. TECHNIQUE: Contiguous 3 mm axial images were obtained from the lung bases to the level of the proximal femora after the administration of intravenous and oral contrast. Sagittal and coronal reconstructions were reviewed. FINDINGS: THORAX: The imaged lower thorax demonstrates no gross abnormality. LIVER: The liver demonstrates normal size and density with no intrahepatic biliary ductal dilatation or focal masses. GALLBLADDER: Grossly unremarkable. PANCREAS: Appears normal with no cystic or solid lesions. SPLEEN: Normal ADRENAL GLANDS: Normal with no nodules or masses. KIDNEYS: Both kidneys enhance symmetrically with no hydronephrosis or nephrolithiasis or perinephric fluid collections. No focal masses are identified. The visualized ureters appear grossly unremarkable. STOMACH: not well distended linting evaluation SMALL BOWEL: The small bowel loops demonstrate variable degrees of distention with no abnormal dilatation or other signs to suggest bowel obstruction. LARGE BOWEL: Multiple divertiucli are noted throughout the colon. The appendix is not well visualized. No evidence of free intraperitoneal air or fluid. RETROPERITONEUM: The abdominal aorta is nonaneurysmal with moderate to severe atherosclerosis. The inferior vena cava is normal in size and caliber. No abnormally enlarged retroperitoneal lymph nodes are identified. URINARY BLADDER:The urinary bladder is well-distended with no gross abnormality. The uterus and adnexa appear normal. ADDITIONAL FINDINGS: None. BONES: Mild degenerative changes are identified in the visualized bones. Changes of kyphoplasty of L2 vertebral body. IMPRESSION: 1. Colonic diverticulosis. 2. No acute intra-abdominal or intrapelvic process. This exam was performed according to our departmental dose-optimization program, which includes automated exposure control, adjustment of the mA and/or kV according to patient size and/or use of iterative reconstruction technique. Electronically signed by: Sarah William MD 03/10/2019 2:33 PM CLINICAL RESEARCH SPECIALIST
== END ==
LOC: CT 09:30
PROVIDERS: ATTEND Family Medicine
DX: K57.30 Diverticulosis of large intestine without perforation or abscess without bleeding (principal); M54.5 Low back pain; M25.572 Pain in left ankle and joints of left foot; M25.542 Pain in joints of left hand

== ENCOUNTER → 2019-03-23 | Outpatient (CLI) | payer MEDICARE, BC ==
--- NOTE | 2019-03-24 10:23 | MRI ---
EXAM DESCRIPTION: Lumbar Spine w/o Contrast : Magnetic Resonance Imaging. CLINICAL HISTORY: SPINAL STENOSIS LUMBAR REGION WITHOUT NEUROGENIC CLAUDICATION COMPARISON: MRI scan lumbar spine without contrast April 2016. TECHNIQUE: Multiplanar, multiple standard sequences, non contrast MRI, lumbar spine. FINDINGS: L5-S1: The disc is well visualized on axial T2 series 501, image 3. Disc desiccated. No significant bulging. Thickening of the flavum ligaments with facet joints unremarkable (posterior elements). Mild canal narrowing. Mild to moderate narrowing left foramen and mild narrowing right foramen. This has progressed since the prior study. L4-L5: Minimal to moderate narrowing disc space with disc desiccation. Bilateral disc bulge into the foramina with mild to moderate narrowing. Degenerative hypertrophy of the posterior elements with AP canal diameter 9.5 mm. Disc bulge into the foramina and narrowing has progressed since the prior study. L3-L4: Disc desiccation and minimal disc space loss. No significant bulging. Minimal degenerative hypertrophy of the posterior elements. Canal diameter 11 mm. Mild narrowing of the bilateral foramina. Stable from the prior study. L2-L3: Schmorl's node in the superior L3 endplate has enlarged slightly since the prior study. Vertebral plasty augmentation cement in the disc space. Tiny posterior disc bulge. Minimal degenerative hypertrophy of the posterior elements more on the right. Mild bilateral foraminal narrowing. No change from the prior study. Previous compression deformity L2 vertebral body which contains augmentation cement. Anterior vertebral body height 15 mm and posterior vertebral body height 18 mm which is stable. 3 mm retropulsion of the superior endplate is also stable. No canal stenosis or impingement of the conus. L1-L2: Depression of the superior L2 endplate from prior fracture but stable. Minimal narrowing of the posterior disc space. Desiccated disc. Not bulging posterior to retropulsed endplate. Mild canal narrowing. Degenerative hypertrophy of the posterior elements. Mild bilateral foraminal narrowing. Conus terminates just above the disc space. Stable since the prior study. T12-L1: Disc space maintained with normal signal in the disc. Posterior elements unremarkable. Canal and foramina are patent. No change from the prior study. L2-L4 levoscoliosis. Paravertebral soft tissues cyst in the left kidney.. Minimal paraspinal muscle atrophy. Distal cord normal signal and caliber. Normal marrow signal in the remaining vertebral bodies and the posterior elements. Vertebral bodies are not compressed at any level. IMPRESSION: 1. Mild canal narrowing and mild to moderate narrowing of the left foramen at L5-S1 has progressed since the prior study. 2. Bilateral L4-L5 disc bulge into the foramina with narrowing has progressed since the prior study. Borderline mild central canal stenosis is stable. 3. Moderate central canal narrowing at L3-L4 with hypertrophy of the posterior elements is stable from the prior study. 4. Previous compression type vertebral body fracture at L2 with augmentation procedure demonstrate stable height since the prior study. No change in retropulsion of the superior endplate. Endplate lesions are unchanged. Augmentation cement again noted in the L2-L3 disc space unchanged. Electronically signed by: Adria Griffin MD 03/24/2019 10:22 AM [facility]
== END ==
LOC: MRI 13:00
PROVIDERS: ATTEND Family Medicine
DX: M48.061 Spinal stenosis, lumbar region without neurogenic claudication (principal); M51.86 Other intervertebral disc disorders, lumbar region

== ENCOUNTER → 2019-10-24 | Outpatient (CLI) | payer MEDICARE, BC | LOC: GMAJ 10:45 | PROVIDERS: ATTEND Family Medicine | DX: E03.9 Hypothyroidism, unspecified (principal); E78.2 Mixed hyperlipidemia; I10 Essential (primary) hypertension ==

== ENCOUNTER 2020-04-23 10:12 | Emergency (ER) | payer MEDICARE, BC ==
[2020-04-23] MEDS ORDERED: ASPIRIN (CHEWABLE) 81 MG TAB PO ONE (10:35)
[2020-04-23] MEDS ORDERED: predniSONE 20 MG TAB PO ONE (10:38)
[2020-04-23] MEDS ORDERED: IPRATROPIUM/ALBUTEROL 3 ML VIAL NEB ONE (10:38)
--- NOTE | 2020-04-23 10:43 | ED.PDOC ---
History of Present Illness - General Chief Complaint: Chest Pain/VA Stated Complaint: chest pressure Time Seen by Provider: 04/23/20 10:13 Source: patient, RN notes reviewed, Vital Signs reviewed Exam Limitations: no limitations - History of Present Illness Initial Comments: The patient is a 69 year old with PMH significant for HTN, HLD, COPD, Hypothyroidism who presents complaining of chest pain and shortness of breath. She is a former smoker and wears oxygen at home while sleeping at night. States that she has been having exertional dyspnea for the past two weeks, no orth opnea, leg swelling or weight gain. Two days ago she had an episode of severe chest pain while walking which lasted around 10 minutes. She describes the pain as midline, pressure-like and associated with shortness of breath. She had a recurrent episode around an hour later also lasting around 10 minutes. Since that time she complains of a dull ache in her chest. She states that the discomfort has made it difficult for her to sleep. She has associated right sided neck pain. She is very hypertensive in the Emergency Department. She did not take her blood pressure medications today, however, she states that she is typically compliant with them. She does not take her blood pressure every day at home and does not know what her baseline blood pressure is. No other complaints at this time. Allergies/Adverse Reactions: Allergies NO KNOWN ALLERGY Allergy (Verified 08/23/18 15:42) Home Medications: Ambulatory Orders Losartan Potassium 50 mg PO BID 07/25/15 Metoprolol Tartrate 50 mg PO BID 07/25/15 Hydrochlorothiazide 25 mg PO DAILY 09/18/15 Diclofenac [Zorvolex] 35 mg PO BID 04/23/20 Doxycycline Hyclate 100 mg PO BID #14 tab 04/23/20 Levothyroxine Sodium [Euthyrox] 100 mcg PO DAILY 04/23/20 Prednisone 60 mg PO DAILY #15 tab 04/23/20 Review of Systems - Review of Systems Constitutional: States: malaise. Denies: chills, fever EENTM: States: no symptoms reported Respiratory: States: short of breath, wheezing. Denies: cough, orthopnea Cardiology: States: chest pain. Denies: edema, palpitations, syncope Gastrointestinal/Abdominal: Denies: abdominal pain, nausea, vomiting Genitourinary: States: no symptoms reported Musculoskeletal: States: no symptoms reported Skin: States: no symptoms reported Neurological: States: no symptoms reported Endocrine: States: flushing. Denies: excessive sweating Hematologic/Lymphatic: States: no symptoms reported All other Systems: Reviewed and Negative Past Medical History (General) - Patient Medical History Hx Stroke: No Hx of COPD: Yes Hx Congestive Heart Failure: No Hx Pacemaker: No Hx Hypertension: Yes Hx Thyroid Disease: Yes Hx Diabetes: No Hx MRSA: No - Vaccination History Hx Influenza Vaccination: Yes Hx Pneumococcal Vaccination: Yes - Social History Hx Tobacco Use: Yes Hx Alcohol Use: No Hx Substance Use: No Hx Depression: Yes Hx Physical Abuse: No Hx Emotional Abuse: No Family Medical History - Family History Mother Living Status: Hx Cardiac Disease: Yes Hx Family;Other: Rheumatic fever Physical Exam - Physical Exam General Appearance: Alert, Anxious, No apparent distress Eyes, Ears, Nose, Throat Exam: normal ENT inspection Neck: non-tender, full range of motion, supple, normal inspection Respiratory: chest non-tender, normal breath sounds, no respiratory distress, no accessory muscle use, wheezing - scattered expiratory wheezing Cardiovascular/Chest: normal peripheral pulses, regular rate, rhythm, no edema, no JVD, no murmur Peripheral Pulses: radial,right: 2+, radial,left: 2+ Gastrointestinal/Abdominal: non tender, soft Rectal Exam: deferred Extremity: normal range of motion, non-tender, normal inspection, no pedal edema Neurologic: no motor/sensory deficits, alert, normal mood/affect, oriented x 3 Skin Exam: normal color, warm/dry Progress - Progress Progress: 04/23/20 13:28 Patient reassessed, she is feeling better after nebs and steroids. She is ambulatory around the emergency department without difficulty. Troponin negative x 2. Will continue outpatient management for COPD exacerbation and she will follow up with her PCP for outpatient stress testing. Home care instructions and return indications reviewed. - EKG/XRAY/CT Comments: 1009 Normal sinus rhythm at 66, nl axis, nl intervals, no STEMI Departure - Departure Clinical Impression: COPD exacerbation Chest pain Qualifiers: Chest pain type: unspecified Qualified Code(s): R07.9 - Chest pain, unspecified Time of Disposition: 13:29 Disposition: Discharge to Home or Self Care Departure Forms: ED Discharge - Pt. Copy, Patient Portal Self Enrollment Instructions: DI for Chest Pain, Exacerbation of COPD (DC), Chest Pain (DC) Diet: resume usual diet Activity: increase activity as tolerated Referrals: Joey Soares MD [Primary Care Provider] - 1-2 Weeks Prescriptions: Doxycycline Hyclate 100 mg PO BID #14 tab Prednisone 60 mg PO DAILY #15 tab Home Medications: Ambulatory Orders Losartan Potassium 50 mg PO BID 07/25/15 Metoprolol Tartrate 50 mg PO BID 07/25/15 Hydrochlorothiazide 25 mg PO DAILY 09/18/15 Diclofenac [Zorvolex] 35 mg PO BID 04/23/20 Doxycycline Hyclate 100 mg PO BID #14 tab 04/23/20 Levothyroxine Sodium [Euthyrox] 100 mcg PO DAILY 04/23/20 Prednisone 60 mg PO DAILY #15 tab 04/23/20
[2020-04-23] MEDS: NITROGLYCERIN 0.4 MG 25 EA TAB SL STA ×2 (10:55→11:03)
--- NOTE | 2020-04-23 11:05 | RAD ---
EXAM: Chest,1 View CLINICAL HISTORY: Chest pain COMPARISON STUDY: July 25, 2015 TECHNICAL: A single anteroposterior (AP) view of the chest was performed. FINDINGS: No consolidations, effusions, or edema. The heart size is not enlarged. AP portable technique causes magnification with some enlargement of the cardiac silhouette. Atherosclerotic calcifications are present. IMPRESSION: NO ACUTE ABNORMALITY. Electronically signed by: Livan Sweet MD 04/23/2020 11:03 AM [facility]
[2020-04-23 14:05] VITALS: BP 144/58; TEMP 98.3; O2SAT 95
== END 2020-04-23 14:05 | disposition home or self-care (01) ==
LOC: ER 10:12
DX: R07.89 Other chest pain (principal); J44.1 Chronic obstructive pulmonary disease with (acute) exacerbation; M54.2 Cervicalgia; Z99.81 Dependence on supplemental oxygen; I10 Essential (primary) hypertension; E07.9 Disorder of thyroid, unspecified; Z87.891 Personal history of nicotine dependence; Z79.899 Other long term (current) drug therapy
CPT/HCPCS: 36415; 71045; 80048; 82550; 82553; 83880; 84484; 85025; 93005; 94640; J7512; J7620